=== PATIENT | female | born 1940 | race Caucasian/White ===

== ENCOUNTER 2016-08-31 09:42 | Day surgery (SDC) | payer MEDICARE ==
[2016-08-26 10:32] VITALS: BMI 31.6
--- NOTE | 2016-08-30 17:02 | HP ---
DATE OF ADMISSION: 08/31/2016 Shelby Srivastava is a 76-year-old patient seen with progressive right knee pain. After having treatment options discussed, she elected to proceed with right knee arthroscopy. Consent was obtained. Medical clearance by Dr. Elvis Galvan. PAST MEDICAL HISTORY: Hyperlipidemia, [id number] diabetes, hypertension. PAST SURGICAL HISTORY: Appendectomy, tubal ligation, cholecystectomy, tonsillectomy, rotator cuff surgery. DAILY MEDICATIONS: Aspirin, atorvastatin, metformin. ALLERGIES: DEMEROL AND CODEINE. SOCIAL HISTORY: Patient denies current tobacco use. PHYSICAL EVALUATION OF RIGHT KNEE: Range of motion is 0 to 130 degrees. There is a mild effusion present. Tenderness along the lateral joint line. Positive lateral Kenneth's. Ligaments are stable. Hip rotation is without pain. Distal neurovascular exam is intact. Radiographs of the right knee revealed mild medial compartment and patellofemoral compartment osteoarthritis as well as moderate lateral compartment osteoarthritis. An MRI of the right knee revealed an effusion, osteoarthritis and lateral meniscal tear. IMPRESSION: Internal derangement of right knee a lateral meniscal tear. PLAN: Right knee arthroscopy with partial meniscectomy and debridement.
[~2016-08-31 09:42] MED LIST: DEXAMETHASONE SOD PHOSPHATE 10 MG/ML 1 ML VIAL IV ONE; LACTATED RINGERS 1,000 ML IV SCH; ONDANSETRON 4 MG/2 ML VIAL IVP ONE; ceFAZolin 2 GM in SODIUM CHLORIDE 0.9% 100 ML IVPB ONE
[2016-08-31] MEDS ORDERED: LACTATED RINGERS 1,000 ML IV ONE (09:58)
[2016-08-31] MEDS ORDERED: LIDOCAINE 1% 20 ML VIAL (10MG/ML) FOR IV START INTRADERMA ONE (09:58)
[2016-08-31 10:25] LABS: Glucose,Whole Blood 129 mg/dL (75-99)
[2016-08-31] MEDS ORDERED: LIDOCAINE 1% INJ 10MG/ML (20 ML MDV) ONE (12:30)
[2016-08-31] MEDS ORDERED: PROPOFOL 10 MG/ML 20 ML VIAL IV ONE (12:30)
[2016-08-31] MEDS ORDERED: SUCCINYLCHOLINE CHLORIDE 100 MG/5 ML SYR IV ONE (12:30)
[2016-08-31] MEDS ORDERED: ROCURONIUM BROMIDE 10 MG/ML 10 ML VIAL IV ONE (12:30)
[2016-08-31] MEDS ORDERED: NEOSTIGMINE 1 MG/ML 10 ML VIAL ONE (12:30)
[2016-08-31] MEDS ORDERED: fentaNYL (PF) 50 MCG/ML 2 ML AMP ONE (12:30)
[2016-08-31] MEDS ORDERED: GLYCOPYRROLATE 0.2 MG/ML 2 ML VIAL ONE (12:30)
[2016-08-31] MEDS ORDERED: MIDAZOLAM 2 MG/2 ML VIAL ONE (12:30)
[2016-08-31] MEDS ORDERED: BUPIVACAIN-EPI 0.25%-1:200,000 30 ML VIAL INTRAARTIC ONE ×2 (12:35→13:09)
--- NOTE | 2016-08-31 13:25 | P.OP ---
Date of Procedure: 08/31/16 Preoperative Diagnosis: Internal derangement right knee Postoperative Diagnosis: 1. Tear medial and lateral meniscus right knee 2. 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 Reactive synovitis medial and suprapatellar compartments right knee Procedure(s) Performed: 1. Arthroscopic partial medial and lateral meniscectomy right knee 2. Arthroscopic chondroplasty patella right knee 3. Arthroscopic partial synovectomy medial and suprapatellar compartments right knee Anesthesia: ABNERA Surgeon: John Clayton Estimated Blood Loss (ml): 5 Pathology: none sent Condition: stable Disposition: PACU Indications for Procedure: Patient seen with progressive right knee pain. After having treatment options discussed, she elected to proceed with right knee arthroscopy. Description of Procedure: Patient was taken to the operative suite. Patient underwent a general anesthetic by the department of anesthesia. Patient was given preoperative antibiotics. The right lower extremity was placed in a well-padded arthroscopic leg chamorro. The right leg was prepped and draped in the normal sterile orthopedic fashion. A lateral parapatellar and suprapatellar incision was made. Trochars were inserted. Arthroscopy was initiated. Suprapatellar pouch revealed diffuse thick reactive synovitis. The patellofemoral joint appeared to articulate congruently. There was grade 2/3 chondromalacia with some osteochondral tears present. The scope was guided into the medial gutter. No loose bodies or plica were identified. The scope was then guided into the medial compartment. A medial parapatellar incision was made. Trocar inserted followed by probe. There was a radial tear posterior horn medial meniscus. Grade 1 chondromalacia changes medial femoral condyle - no osteochondral tears. Reactive synovitis anteriorly. A partial medial meniscectomy performed on a stable tissue. Partial synovectomy performed. The residual meniscus probed and found to be stable. Scope and probe were then guided into the intercondylar notch. Cruciates were identified, probed and found to be stable. The scope and probe were then guided into lateral compartment. Complex tear anterior horn lateral meniscus extending into the midbody. Grade 1 chondral malacia changes of the tibial plateau. No loose bodies. No reactive synovitis. A partial lateral meniscectomy performed on a stable tissue. The residual meniscus was found to be stable. The scope was in guided back into the suprapatellar compartment. A motorized shaver was introduced into the suprapatellar compartment. I debrided piecemeal fragments of meniscus. I performed a chondroplasty of the patella. I performed a partial synovectomy. Shaver was removed. I took one more look on the entire knee, no residual debris. Instruments were now removed from the joint. The joint was infiltrated with .25% Marcaine. Steri-Strips were applied to the portal sites. Sterile dressings were applied. The patient was placed into a THERESA hose. No tourniquet was utilized. The patient was awakened, transferred to a bed and taken to recovery stable satisfactory condition.
[2016-08-31 13:32] VITALS: TEMP 97.7
[2016-08-31 13:38] LABS: Glucose,Whole Blood 172 mg/dL (75-99)
[2016-08-31] MEDS: HYDROmorphone 1 MG/ML 1 ML SYRINGE IVP PRN ×4 (13:39→14:05)
[2016-08-31 14:46] VITALS: RESP 18
[2016-08-31 15:56] VITALS: BP 127/69; PULSE 81
== END 2016-08-31 16:05 | disposition home or self-care (01) ==
LOC: OR 09:42
PROVIDERS: ATTEND Orthopaedic Surgery
DX: S83.281A Other tear of lateral meniscus, current injury, right knee, initial encounter (principal); S83.241A Other tear of medial meniscus, current injury, right knee, initial encounter; M22.41 Chondromalacia patellae, right knee; M65.9 Synovitis and tenosynovitis, unspecified; X58.XXXA Exposure to other specified factors, initial encounter; E78.5 Hyperlipidemia, unspecified; E11.9 Type 2 diabetes mellitus without complications; M17.11 Unilateral primary osteoarthritis, right knee; K58.9 Irritable bowel syndrome, unspecified; I10 Essential (primary) hypertension; Z79.84 Long term (current) use of oral hypoglycemic drugs; Z79.82 Long term (current) use of aspirin; Z79.899 Other long term (current) drug therapy; Z88.5 Allergy status to narcotic agent; Z87.891 Personal history of nicotine dependence
CPT/HCPCS: 29883; J2250; J1100; J2710; J0690; J2405; J2001; J3010; J1170; J0330; J2704

== ENCOUNTER → 2016-11-08 | Outpatient (CLI) | payer MEDICARE ==
--- NOTE | 2016-11-09 13:10 | MM ---
Reason for exam: screening (asymptomatic). Last mammogram was performed 1 year and 3 months ago. History: Patient is postmenopausal. Benign stereotactic core biopsy of the right breast, October 23, 1998. Physical Findings: A clinical breast exam by your physician is recommended on an annual basis and results should be correlated with mammographic findings. MG 3D Screening Mammo W/Cad Bilateral CC and MLO view(s) were taken. Prior study comparison: August 06, 2015, bilateral MG screening mammo w CAD. August 01, 2014, bilateral MG screening mammo w CAD. Previous mammotome biopsy in the right breast. No significant changes when compared with prior studies. ASSESSMENT: Benign, BI-RAD 2 RECOMMENDATION: Routine screening mammogram of both breasts in 1 year.
== END | disposition home or self-care (01) ==
LOC: RADMAMWWP 09:05
PROVIDERS: ATTEND Family Medicine
DX: Z12.31 Encounter for screening mammogram for malignant neoplasm of breast (principal)
CPT/HCPCS: 77063; G0202

== ENCOUNTER → 2018-02-12 | Outpatient (CLI) | payer MEDICARE ==
[2018-02-12 14:39] LABS: Blood Urea Nitrogen 11 mg/dL (7-17)
--- NOTE | 2018-02-12 16:54 | MR ---
EXAMINATION TYPE: MR iac wo/w con DATE OF EXAM: 02/12/2018 COMPARISON: Prior MRI internal auditory canals 01/20/2016 HISTORY: Acoustic nerve disorder TECHNIQUE: Multiplanar, multisequence images of the brain and brainstem is performed without and with IV contras t, utilizing 7.5 mL intravenous Gadavist . FINDINGS: Diffusion weighted images demonstrate no evidence of a recent infarct or other diffusion ab normality, suspected artifact is noted. There is no extra-axial fluid collection or significant inte rval change in white matter signal abnormality. Scattered hyperintensities on inversion recovery and T2-weighted sequences are again noted and are similar in size and distribution to previous exam with in the periventricular white matter. The ventricular system and cisternal spaces are normal in size a nd appearance. The brain volume is age appropriate. Postop changes, abnormal increased signal in the mastoid air cells on T2 and inversion recovery seque nces is again noted. Midline structures demonstrate normal morphology. The craniocervical junction appears within normal limits. Post contrast images demonstrate no abnormal enhancement to suggest recurrent tumor. The dur al venous sinuses appear patent. The visualized sinuses are remarkable for inflammatory change in the bilateral maxillary sinuses and the globes are intact. IMPRESSION: Stable postop changes. Sinus disease.
== END | disposition home or self-care (01) ==
LOC: RADMRIMAIN 14:08
PROVIDERS: ATTEND Otolaryngology
DX: H93.3X1 Disorders of right acoustic nerve (principal); Z98.890 Other specified postprocedural states
CPT/HCPCS: 82565; 84520; 70553; 36415; A9581

== ENCOUNTER → 2018-05-01 | Outpatient (CLI) | payer MEDICARE ==
[2018-05-01 09:56] LABS: HCT 41.3 % (34.0-46.0); HGB 13.4 gm/dL (11.4-16.0); MCH 29.3 pg (25.0-35.0); MCHC 32.6 g/dL (31.0-37.0); MCV 89.9 fL (80.0-100.0); Mean Platelet Volume 7.3; Platelet Count 211 k/uL (150-450); RBC 4.59 m/uL (3.80-5.40); RDW 13.7 % (11.5-15.5); WBC 5.3 k/uL (3.8-10.6)
[2018-05-01 10:12] LABS: ALT 18 U/L (9-52); AST 24 U/L (14-36); Albumin 3.7 g/dL (3.5-5.0); Alkaline Phosphatase 51 U/L (38-126); Anion Gap 7 mmol/L; Blood Urea Nitrogen 9 mg/dL (7-17); Calcium 9.2 mg/dL (8.4-10.2); Carbon Dioxide 28 mmol/L (22-30); Chloride 107 mmol/L (98-107); Cholesterol 168 mg/dL (<200); Glucose 125 mg/dL (74-99); HDL Cholesterol 79 mg/dL (40-60); LDL Cholesterol,Calculated 66 mg/dL (0-99); Potassium 4.3 mmol/L (3.5-5.1); Sodium 142 mmol/L (137-145); Total Bilirubin 0.6 mg/dL (0.2-1.3); Total Protein 6.3 g/dL (6.3-8.2); Triglycerides 114 mg/dL (<150)
[2018-05-01 19:11] LABS: Hemoglobin A1C 6.4 % (4.0-6.0)
== END | disposition home or self-care (01) ==
LOC: LABWHC1 08:46
PROVIDERS: ATTEND Family Medicine
DX: E11.9 Type 2 diabetes mellitus without complications (principal); E78.5 Hyperlipidemia, unspecified
CPT/HCPCS: 36415; 80053; 80061; 83036; 85027

== ENCOUNTER → 2018-12-07 | Outpatient (CLI) | payer MEDICARE | LOC: LABWHC1 10:31 | PROVIDERS: ATTEND Internal Medicine Interventional Cardiology | DX: E03.9 Hypothyroidism, unspecified (principal) | CPT/HCPCS: 36415; 84439; 84443 ==

== ENCOUNTER 2019-09-18 19:15 | Emergency (ER) | payer MEDICARE ==
[2019-09-18 19:22] VITALS: RESP 16
[2019-09-18] MEDS ORDERED: SODIUM CHLORIDE 0.9% 500 ML 500 ML IV STA (19:43)
[2019-09-18] MEDS ORDERED: ACETAMINOPHEN TAB 325 MG TAB PO STA (19:44)
--- NOTE | 2019-09-18 19:50 | ED ---
Dizziness HPI - General Chief Complaint: Dizziness Stated Complaint: A-Fib Time Seen by Provider: 09/18/19 19:30 Source: patient Mode of arrival: wheelchair Limitations: no limitations - History of Present Illness Initial Comments: Patient is a 79-year-old female, past medical history of A. fib on Coumadin, diabetes, presenting to emergency Department with complaints of feeling lightheaded since this morning. Patient states she is also having some mild back pain and feels like she is "shaky." Patient denies fever, nausea, vomiting, abdominal pain, chest pain. Patient states she does feel short of breath sometimes but that is her normal. Patient states she also has a mild cough but typically does. She was recently started on metoprolol approximately 3 weeks ago. No other changes in her medications. She has no other complaints at this time. Upon arrival to the ER her vital signs are stable. - Related Data Home Medications Medication Instructions Recorded Confirmed Aspirin 325 mg PO DAILY 08/26/16 08/26/16 Atorvastatin [Lipitor] 10 mg PO HS 08/26/16 08/31/16 Calcium Carbonate/Vitamin D3 1 each PO DAILY 08/26/16 08/31/16 [Calcium 500-Vit D3 600 Tablet] Fish Oil/Dha/Epa [Fish Oil 1,200 1 each PO TID 08/26/16 08/26/16 mg Fish Oil] Folic Acid 1 mg PO DAILY 08/26/16 08/31/16 Multivitamins, Thera [Multivitamin] 1 tab PO DAILY 08/26/16 08/26/16 metFORMIN HCL [Glucophage] 500 mg PO BID 08/26/16 08/31/16 Previous Rx's Medication Instructions Recorded Hydrocodone/Acetaminophen [[place] 1 each PO Q6HR PRN #20 tab 08/31/16 5-325] Allergies Allergy/AdvReac Type Severity Reaction Status Date / Time codeine Allergy Unknown Verified 08/26/16 10:13 meperidine [From Demerol] Allergy Unknown Verified 08/26/16 10:13 Review of Systems ROS Statement: Those systems with pertinent positive or pertinent negative responses have been documented in the HPI. ROS Other: All systems not noted in ROS Statement are negative. Past Medical History Past Medical History: Chest Pain / Angina, Diabetes Mellitus, Hyperlipidemia, Osteoarthritis (OA) Additional Past Medical History / Comment(s): IBS History of Any Multi-Drug Resistant Organisms: None Reported Past Surgical History: Appendectomy, Cholecystectomy, Heart Catheterization, O rthopedic Surgery, Tonsillectomy, Tubal Ligation Additional Past Surgical History / Comment(s): Bilateral cataracts, Lt ankle- screws, Lt rotator cuff repair, Collapsed lung, Acoustic neuroma, Heart cath x2 Past Anesthesia/Blood Transfusion Reactions: No Reported Reaction Past Psychological History: Depression Smoking Status: Former smoker Past Alcohol Use History: Occasional Past Drug Use History: None Reported - Past Family History Mother Family Medical History: No Reported History General Exam - General Exam Comments Initial Comments: GENERAL: Well-appearing, well-nourished and in no acute distress. HEAD: Atraumatic, normocephalic. EYES: Pupils equal round and reactive to light, extraocular movements intact, sclera anicteric, conjunctiva are normal. ENT: TMs normal, nares patent, oropharynx clear without exudates. Moist mucous membranes. NECK: Normal range of motion, supple without lymphadenopathy or JVD. LUNGS: Breath sounds clear to auscultation bilaterally and equal. No wheezes rales or rhonchi. HEART: Regular rate and rhythm without murmurs, rubs or gallops. ABDOMEN: Soft, nontender, normoactive bowel sounds. No guarding, no rebound. No masses appreciated. : Deferred EXTREMITIES: Normal range of motion, no pitting or edema. No clubbing or cyanosis. Strength 5 out of 5 in upper and lower extremities. Mild pain with palpation of the left thoracic paraspinals. NEUROLOGICAL: Cranial nerves II through XII grossly intact. Normal speech, normal gait. PSYCH: Normal mood, normal affect. SKIN: Warm, Dry, normal turgor, no rashes or lesions noted. Limitations: no limitations Course Vital Signs 09/18/19 09/18/19 19:17 23:40 Temperature 97.6 F 97.7 F Pulse Rate 96 89 Respiratory 16 16 Rate Blood Pressure 127/81 123/76 O2 Sat by Pulse 98 98 Oximetry EKG Findings - EKG Comments: EKG Findings:: Ventricular rate 97, NV 144, QTC 482. Normal sinus rhythm. Pos sible left atrial enlargement, low voltage QRS. Medical Decision Making - Medical Decision Making Patient is a 79-year-old female presenting with lightheadedness that started this morning. Vitals are stable. Exam is unremarkable. Lab work and urinalysis showed no acute findings. No signs of infection. EKG shows no acute abnormalities, troponin is normal. I discussed these findings with the patient. Patient was given fluids. She states she is asymptomatic at this time and wishes to go home. Patient is stable for discharge at this time. Her vitals remained stable. Return parameters were discussed with the patient she verbalized understanding. Case discussed with Dr. Piña. - Lab Data Result diagrams: 09/18/19 19:35 09/18/19 19:35 Lab Results 09/18/19 09/18/19 09/18/19 Range/Units 19:35 19:35 19:35 WBC 6.2 (3.8-10.6) k/uL RBC 5.21 (3.80-5.40) m/uL Hgb 16.0 (11.4-16.0) gm/dL Hct 47.1 H (34.0-46.0) % MCV 90.4 (80.0-100.0) fL MCH 30.7 (25.0-35.0) pg MCHC 34.0 (31.0-37.0) g/dL RDW 13.2 (11.5-15.5) % Plt Count 202 (150-450) k/uL Neutrophils % 52 % Lymphocytes % 30 % Monocytes % 6 % Eosinophils % 8 % Basophils % 1 % Neutrophils # 3.2 (1.3-7.7) k/uL Lymphocytes # 1.8 (1.0-4.8) k/uL Monocytes # 0.4 (0-1.0) k/uL Eosinophils # 0.5 (0-0.7) k/uL Basophils # 0.1 (0-0.2) k/uL PT 19.2 H (9.0-12.0) sec INR 2.0 H (<1.2) Sodium 137 (137-145) mmol/L Potassium 3.7 (3.5-5.1) mmol/L Chloride 104 (98-107) mmol/L Carbon Dioxide 24 (22-30) mmol/L Anion Gap 9 mmol/L BUN 17 (7-17) mg/dL Creatinine 0.74 (0.52-1.04) mg/dL Est GFR (CKD-EPI)AfAm >90 (>60 ml/min/1.73 sqM) Est GFR (CKD-EPI)NonAf 79 (>60 ml/min/1.73 sqM) Glucose 194 H (74-99) mg/dL Calcium 9.3 (8.4-10.2) mg/dL Total Bilirubin 0.4 (0.2-1.3) mg/dL AST 28 (14-36) U/L ALT 15 (4-34) U/L Alkaline Phosphatase 66 (38-126) U/L Troponin I (0.000-0.034) ng/mL Total Protein 6.6 (6.3-8.2) g/dL Albumin 4.1 (3.5-5.0) g/dL Urine Color Urine Appearance (Clear) Urine pH (5.0-8.0) Ur Specific [place] (1.001-1.035) Urine Protein (Negative) Urine Glucose (UA) (Negative) Urine Ketones (Negative) Urine Blood (Negative) Urine Nitrite (Negative) Urine Bilirubin (Negative) Urine Urobilinogen (<2.0) mg/dL Ur Leukocyte Esterase (Negative) Urine RBC (0-5) /hpf Urine WBC (0-5) /hpf Ur Squamous Epith Cells (0-4) /hpf Hyaline Casts (0-2) /lpf Urine Mucus (None) /hpf 09/18/19 09/18/19 Range/Units 19:35 22:45 WBC (3.8-10.6) k/uL RBC (3.80-5.40) m/uL Hgb (11.4-16.0) gm/dL Hct (34.0-46.0) % MCV (80.0-100.0) fL MCH (25.0-35.0) pg MCHC (31.0-37.0) g/dL RDW (11.5-15.5) % Plt Count (150-450) k/uL Neutrophils % % Lymphocytes % % Monocytes % % Eosinophils % % Basophils % % Neutrophils # (1.3-7.7) k/uL Lymphocytes # (1.0-4.8) k/uL Monocytes # (0-1.0) k/uL Eosinophils # (0-0.7) k/uL Basophils # (0-0.2) k/uL PT (9.0-12.0) sec INR (<1.2) Sodium (137-145) mmol/L Potassium (3.5-5.1) mmol/L Chloride (98-107) mmol/L Carbon Dioxide (22-30) mmol/L Anion Gap mmol/L BUN (7-17) mg/dL Creatinine (0.52-1.04) mg/dL Est GFR (CKD-EPI)AfAm (>60 ml/min/1.73 sqM) Est GFR (CKD-EPI)NonAf (>60 ml/min/1.73 sqM) Glucose (74-99) mg/dL Calcium (8.4-10.2) mg/dL Total Bilirubin (0.2-1.3) mg/dL AST (14-36) U/L ALT (4-34) U/L Alkaline Phosphatase (38-126) U/L Troponin I <0.012 (0.000-0.034) ng/mL Total Protein (6.3-8.2) g/dL Albumin (3.5-5.0) g/dL Urine Color Yellow Urine Appearance Cloudy H (Clear) Urine pH 5.0 (5.0-8.0) Ur Specific [place] 1.030 (1.001-1.035) Urine Protein Trace H (Negative) Urine Glucose (UA) Negative (Negative) Urine Ketones Trace H (Negative) Urine Blood Trace H (Negative) Urine Nitrite Negative (Negative) Urine Bilirubin Negative (Negative) Urine Urobilinogen 2.0 (<2.0) mg/dL Ur Leukocyte Esterase Small H (Negative) Urine RBC 9 H (0-5) /hpf Urine WBC 2 (0-5) /hpf Ur Squamous Epith Cells 1 (0-4) /hpf Hyaline Casts 4 H (0-2) /lpf Urine Mucus Occasional H (None) /hpf Disposition Clinical Impression: Light headedness Disposition: HOME SELF-CARE Condition: Stable Instructions (If sedation given, give patient instructions): Lightheadedness (ED) Additional Instructions: Please return to the Emergency Department if symptoms worsen or any other concerns. Follow-up with regular physician in 1-3 days. Drink lots of fluids. Is patient prescribed a controlled substance at d/c from ED?: No Referrals: Elvis Galvan DO [Primary Care Provider] - 1-2 days
[2019-09-18 20:01] LABS: Prothrombin Time 19.2 sec (9.0-12.0)
--- NOTE | 2019-09-18 20:05 | XR ---
EXAMINATION TYPE: XR chest 2V DATE OF EXAM: 09/18/2019 COMPARISON: 09/14/2011 INDICATION: Cough dyspnea TECHNIQUE: Frontal and lateral views of the chest are obtained. FINDINGS: The heart size is normal. The pulmonary vasculature is normal. The lungs are clear. IMPRESSION: 1. No acute pulmonary process.
[2019-09-18 20:06] LABS: ALT 15 U/L (4-34); AST 28 U/L (14-36); African American GFR (CKD) >90 (>60 ml/min/1.73 sqM); Albumin 4.1 g/dL (3.5-5.0); Alkaline Phosphatase 66 U/L (38-126); Anion Gap 9 mmol/L; Blood Urea Nitrogen 17 mg/dL (7-17); Calcium 9.3 mg/dL (8.4-10.2); Carbon Dioxide 24 mmol/L (22-30); Chloride 104 mmol/L (98-107); Glucose 194 mg/dL (74-99); Non-African American GFR(CKD) 79 (>60 ml/min/1.73 sqM); Potassium 3.7 mmol/L (3.5-5.1); Sodium 137 mmol/L (137-145); Total Bilirubin 0.4 mg/dL (0.2-1.3); Total Protein 6.6 g/dL (6.3-8.2)
[2019-09-18 20:30] LABS: Basophils # (A) 0.1 k/uL (0-0.2); Basophils % (A) 1 %; Eosinophils # (A) 0.5 k/uL (0-0.7); Eosinophils % (A) 8 %; HCT 47.1 % (34.0-46.0); Lymphocytes # (A) 1.8 k/uL (1.0-4.8); Lymphocytes % (A) 30 %; MCH 30.7 pg (25.0-35.0); MCV 90.4 fL (80.0-100.0); Monocytes # (A) 0.4 k/uL (0-1.0); Monocytes % (A) 6 %; Neutrophils # (A) 3.2 k/uL (1.3-7.7); Neutrophils % (A) 52 %; Platelet Count 202 k/uL (150-450); RBC 5.21 m/uL (3.80-5.40); RDW 13.2 % (11.5-15.5); WBC 6.2 k/uL (3.8-10.6)
[2019-09-18 22:58] LABS: Appearance,Urine Cloudy (Clear); Bilirubin,Urine Negative (Negative); Blood,Urine Trace (Negative); Color,Urine Yellow; Glucose,Urine (UA) Negative (Negative); Hyaline Casts,Urine 4 /lpf (0-2); Ketones,Urine Trace (Negative); Leukocyte Esterase,Urine Small (Negative); Mucus,Urine Occasional /hpf; Nitrite,Urine Negative (Negative); Protein,Urine Trace (Negative); RBC,Urine 9 /hpf (0-5); Squamous Epithelial Cell,Urine 1 /hpf (0-4); WBC,Urine 2 /hpf (0-5)
[2019-09-18 23:42] VITALS: BP 123/76; PULSE 89; TEMP 97.7
== END 2019-09-18 23:46 | disposition home or self-care (01) ==
LOC: EC 19:15
DX: R42 Dizziness and giddiness (principal); I25.2 Old myocardial infarction; E11.9 Type 2 diabetes mellitus without complications; E78.5 Hyperlipidemia, unspecified; M19.90 Unspecified osteoarthritis, unspecified site; Z79.82 Long term (current) use of aspirin; Z79.84 Long term (current) use of oral hypoglycemic drugs; Z79.899 Other long term (current) drug therapy; Z87.891 Personal history of nicotine dependence; Z95.5 Presence of coronary angioplasty implant and graft; Z90.49 Acquired absence of other specified parts of digestive tract; Z98.890 Other specified postprocedural states; Z88.5 Allergy status to narcotic agent
CPT/HCPCS: 36415; 71046; 80053; 81001; 84484; 85025; 85610; 93005; 96360; 99284

== ENCOUNTER → 2020-01-20 | Outpatient (CLI) | payer MEDICARE ==
[2020-01-20 10:40] LABS: HCT 43.5 % (34.0-46.0); HGB 14.2 gm/dL (11.4-16.0); MCHC 32.6 g/dL (31.0-37.0); Mean Platelet Volume 7.6; Platelet Count 254 k/uL (150-450); RBC 4.73 m/uL (3.80-5.40); RDW 13.5 % (11.5-15.5)
[2020-01-20 17:32] LABS: African American GFR (CKD) 82.4 (60.0-200.0); Anion Gap 8.7 mmol/L (4.00-12.00); Calcium 9.3 mg/dL (8.7-10.3); Carbon Dioxide 26.3 mmol/L (21.6-31.8); Magnesium 1.8 mg/dL (1.5-2.4); Non-African American GFR(CKD) 71.1 (60.0-200.0); Potassium 4.6 mmol/L (3.5-5.5)
[2020-01-20 17:40] LABS: T4, Free (Free Thyroxine) 1.2 ng/dL (0.80-1.80)
== END | disposition home or self-care (01) ==
LOC: LABWHC1 08:58
PROVIDERS: ATTEND Nurse Practitioner
DX: I48.91 Unspecified atrial fibrillation (principal); I49.5 Sick sinus syndrome
CPT/HCPCS: 36415; 80048; 83735; 84439; 84443; 85027

== ENCOUNTER 2020-02-03 08:56 | Day surgery (SDC) | payer MEDICARE ==
[2020-01-30 14:40] VITALS: BMI 32.1
[2020-02-03 09:36] LABS: Glucose,Whole Blood 129 mg/dL (75-99)
[2020-02-03] MEDS ORDERED: ceFAZolin 1,000 MG in SODIUM CHLORIDE 0.9% IRRIGATIO 250 ML IRRIGATION ONE (09:38)
[2020-02-03] MEDS: SODIUM CHLORIDE 0.9% 1,000 ML IV SCH ×2 (09:38)
[2020-02-03] MEDS ORDERED: SODIUM CHLORIDE 0.9% 500 ML 500 ML IV ONE (09:41)
[2020-02-03 10:03] LABS: INR 1.1 (<1.2); Prothrombin Time 11.3 sec (9.0-12.0)
[2020-02-03] MEDS ORDERED: IOPAMIDOL-250 50ML BTL IV ONE (11:00)
[2020-02-03] MEDS: LIDOCAINE 1% INJ 10MG/ML (20 ML MDV) SQ ONE ×3 (11:17→12:03)
[2020-02-03] MEDS ORDERED: MIDAZOLAM 2 MG/2 ML VIAL IV ONE (11:17)
[2020-02-03] MEDS ORDERED: NOREPINEPHRINE 4 MG in SODIUM CHLORIDE 0.9% 250 ML IV ONE (11:48)
[2020-02-03] MEDS ORDERED: fentaNYL (PF) 50 MCG/ML 2 ML AMP IV ONE (12:19)
[2020-02-03] MEDS ORDERED: LIDOCAINE 1% INJ 10MG/ML (20 ML MDV) SQ ONE (12:19)
[2020-02-03] MEDS ORDERED: ACETAMINOPHEN TAB 325 MG TAB PO PRN (13:15)
[2020-02-03] MEDS ORDERED: MECLIZINE 25 MG TAB PO PRN (13:18)
[2020-02-03] MEDS: METOPROLOL TARTRATE 50 MG TAB PO SCH ×2 (13:21→23:03)
[2020-02-03] MEDS ORDERED: WARFARIN 5 MG TAB PO SCH ×2 (13:30→20:28)
[2020-02-03] MEDS ORDERED: HYDROmorphone 0.5 MG/0.5 ML SYRINGE IVP STA (13:34)
[2020-02-03] MEDS ORDERED: HYDROmorphone 1 MG/ML 1 ML SYRINGE ONE ×2 (13:44→17:53)
[2020-02-03] MEDS ORDERED: SODIUM CHLORIDE 0.9% 1,000 ML IV SCH (13:45)
--- NOTE | 2020-02-03 14:37 | XR ---
EXAMINATION TYPE: XR chest 2V DATE OF EXAM: 02/03/2020 COMPARISON: Prior chest 09/18/2019 HISTORY: Lead placement check TECHNIQUE: Frontal and lateral views of the chest are obtained. FINDINGS: Generators in the left pectoral region, there are leads in the right atrium and ventricle. There is no focal air space opacity, pleural effusion, or pneumothorax seen. The cardiac silhouette size is within normal limits. The osseous structures are intact. Bilateral apical pleural thickenin g is again noted. There is some subcutaneous emphysema. IMPRESSION: No evident complication status post lead placement.
--- NOTE | 2020-02-03 15:02 | PCN ---
PROCEDURE NOTE DATE OF SERVICE: 02/03/2020. PROCEDURE PERFORMED: Dual-chamber permanent pacemaker from left infraclavicular approach. PERFORMED BY: Dr. Maverick Enriquez. SEDATION: Moderate conscious sedation time was 95 minutes. Patient was administered Versed, fentanyl. Oxygen saturation, hemodynamics and EKG were monitored closely. CLINICAL INFORMATION: Mrs. Shelby Srivastava is a 79-year-old lady with history of type 2 diabetes, hypertension, hyperlipidemia, who also has developed paroxysmal atrial fib with underlying sick sinus syndrome. Whenever she converted spontaneously to sinus rhythm, she has long pauses of more than 5 seconds with syncope. Because of underlying significant conduction system/sick sinus disease, she was advised dual-chamber pacemaker after doing an event monitor, which recorded several pauses. Risks, benefits, options, rationale were explained to the patient. She was brought in for the procedure electively. PROCEDURE NOTE: Under local anesthesia and strict aseptic precautions using a micropuncture needle technique, an access was obtained into the left axillary vein. The access point was about 2 inches medial and parallel to the left deltopectoral groove. I had difficulty gaining the access and I had punctured the artery with a micropuncture needle at least on 2 occasions. I requested the assistance of Dr. Espinal who obtained the 2nd access point in the same line of the 1st one inferiorly. Subsequently, under strict aseptic precautions and local anesthesia, a linear incision of 3.5 inches was made medial and parallel to the left deltopectoral groove. Blunt dissection was carried. Hemostasis was secured. The surgical pocket was made. An antibiotic sponge was kept in the surgical pocket for 30 minutes. Under fluoroscopic guidance, the ventricular lead was positioned and placed in the interventricular septum with good capture and thresholds. I also checked the lead position in [place] and MARRERO projection and also did a 10 V pacing. Subsequently, another 6-Hebrew introducer was placed to the 2nd access point. The atrial lead was then positioned in the right atrial appendage. Good P-waves and impedance was obtained. Obviously, because the patient was in atrial fibrillation, I could not pace or check thresholds. The wound was then irrigated with antibiotics. Both leads were secured to the underlying muscle with a 0-silk sutures. Both the leads were connected to the pulse generator. Pulse generator was also sutured to the underlying muscle in the line of the incision. The wound was then closed in 2 layers with a 3.0 and 4-0 Vicryl. Excellent hemostasis was secured and good apposition was achieved. I again looked at both the leads and prior to closing, 10 V pacing was performed for both the leads. There were no issues. Lead position was again rechecked and slack was kept in the leads. Subsequently, the wound was closed. While obtaining the access, the patient developed somewhat vasovagal episode with hypotension requiring some IV fluids and transient use of Levophed. At the end of the procedure, patient's pressure was 140/80, oxygen saturation was 97%. She was asymptomatic. Pacemaker information: Infectious Disease Technician of the device is a [employer], model Assurity MRI 2272 pacemaker, serial #[id number]. Atrial lead machine milker was [employer], model tendril ST S2 088 EC/46, serial number [id number]. Ventricular lead machine milker [employer], model tendril STS 2088 TC/52, serial number [id number]. The ventricular lead was positioned in the interventricular septum. The atrial lead thresholds were not obtained. The P-wave sensitivities were more than 5.0. Impedance was 1050 ohms. Ventricular threshold was 0.5 V at 0.4 milliseconds. R- waves of more than 12.0. The lead impedance was 580 ohms. Pacemaker was set at a low rate of 50, high rate of 110 in a DDD mode. Paced AV delay was 275 milliseconds. Sensed AV delay was 250 milliseconds. The patient tolerated procedure well. She will have a portable chest x-ray today and two-view chest x-ray tomorrow and a device check prior to discharge. Details and results were discussed with the patient and her family members. MMTERESAL / JANINEN: [id number] /
[2020-02-03 15:33] LABS: HCT 43.2 % (34.0-46.0); HGB 14.2 gm/dL (11.4-16.0); MCH 30.5 pg (25.0-35.0); MCHC 32.8 g/dL (31.0-37.0); MCV 92.8 fL (80.0-100.0); Platelet Count 194 k/uL (150-450); RBC 4.65 m/uL (3.80-5.40); RDW 13.4 % (11.5-15.5); WBC 8.3 k/uL (3.8-10.6)
[2020-02-03] MEDS: HYDROmorphone 0.5 MG/0.5 ML SYRINGE IVP PRN ×2 (17:55→20:58)
[2020-02-03 20:18] LABS: Glucose,Whole Blood 124 mg/dL (75-99)
[2020-02-03] MEDS: FOLIC ACID 1 MG TAB PO SCH (20:57)
[2020-02-03] MEDS: INSULIN ASPART (NovoLOG) 100 UNIT/ML VIAL SQ SCH (20:58)
[2020-02-03] MEDS ORDERED: ATORVASTATIN 10 MG TAB PO SCH (21:00)
[2020-02-04] MEDS: SODIUM CHLORIDE 0.9% 1,000 ML IV SCH ×2 (05:50→05:51)
[2020-02-04] MEDS: HYDROmorphone 0.5 MG/0.5 ML SYRINGE IVP PRN (05:53)
[2020-02-04 06:17] LABS: Glucose,Whole Blood 133 mg/dL (75-99)
[2020-02-04 07:36] LABS: Basophils # (A) 0.1 k/uL (0-0.2); Basophils % (A) 1 %; Eosinophils # (A) 0.5 k/uL (0-0.7); Eosinophils % (A) 6 %; HCT 41.4 % (34.0-46.0); HGB 13.1 gm/dL (11.4-16.0); INR 1.2 (<1.2); Lymphocytes # (A) 1.9 k/uL (1.0-4.8); Lymphocytes % (A) 25 %; MCH 29.4 pg (25.0-35.0); MCHC 31.6 g/dL (31.0-37.0); Mean Platelet Volume 7.6; Monocytes # (A) 0.5 k/uL (0-1.0); Monocytes % (A) 6 %; Neutrophils # (A) 4.5 k/uL (1.3-7.7); Neutrophils % (A) 60 %; Platelet Count 181 k/uL (150-450); RBC 4.45 m/uL (3.80-5.40); RDW 13.5 % (11.5-15.5); WBC 7.5 k/uL (3.8-10.6)
[2020-02-04] MEDS: INSULIN ASPART (NovoLOG) 100 UNIT/ML VIAL SQ SCH ×2 (08:33→11:52)
[2020-02-04] MEDS: METOPROLOL TARTRATE 50 MG TAB PO SCH (08:35)
[2020-02-04] MEDS: FOLIC ACID 1 MG TAB PO SCH (08:35)
--- NOTE | 2020-02-04 08:42 | XR ---
EXAMINATION TYPE: XR chest 2V DATE OF EXAM: 02/04/2020 COMPARISON: 02/03/2020 HISTORY: 79-year-old female lead placement check TECHNIQUE: AP and lateral views FINDINGS: Left anterior chest wall pacemaker generator with right atrial and right ventricular leads. Heart upp er limits of normal size. Mild interstitial prominence. Some strandy atelectasis in the lower lungs. No consolidation, pneumothorax, or pleural effusion seen. IMPRESSION: Borderline heart size. Left-sided pacemaker generator with right atrial and right ventricular leads. Some minimal strandy basilar atelectasis. No acute process seen.
[2020-02-04] MEDS ORDERED: NON FORMULARY DRUG (Fish Oil/Dha/Epa [Fish Oil 1,200 Mg Fish Oil] 1 EACH) PO SCH (09:00)
[2020-02-04] MEDS ORDERED: CYANOCOBALAMIN 500 MCG TAB PO SCH (09:00)
[2020-02-04 09:31] VITALS: RESP 12
[2020-02-04 11:51] LABS: Glucose,Whole Blood 107 mg/dL (75-99)
[2020-02-04] MEDS ORDERED: CALCIUM CARB-VIT D 500MG-200UN 1 EACH TAB PO SCH (12:00)
[2020-02-04] MEDS ORDERED: MULTIVITAMINS, THERA 1 EACH TAB PO SCH (12:00)
[2020-02-04 12:54] VITALS: BP 110/74; PULSE 72; TEMP 98.8
[2020-02-04] MEDS ORDERED: METOPROLOL TARTRATE 25 MG TAB PO SCH (16:00)
[2020-02-05] MEDS ORDERED: metFORMIN 500 MG TAB PO SCH (12:00)
--- NOTE | 2020-02-05 18:11 | DS ---
DISCHARGE SUMMARY This is a delayed dictation. DATE OF ADMISSION: 02/03/2020 DATE OF DISCHARGE: 02/04/2020. DIAGNOSES: 1. Syncope with sick sinus syndrome. 2. Hypertension. 3. Hyperlipidemia. PROCEDURES PERFORMED: Permanent dual-chamber pacemaker from left infraclavicular approach. Mrs. Srivatsava was brought in electively for a dual-chamber pacemaker in view of significant episodes of syncope and pauses of more than 5.0 seconds with symptoms. The procedure was performed on 02/03/2020 uneventfully. Post-procedure course was uneventful. She was re-evaluated by me on 02/04/2020. Her vitals were stable. Blood pressure was 104/70, pulse rate was 62 per minute sinus. She had converted to sinus rhythm the night before. No JVD. S1, S2 heard normally. Short systolic murmur noted. Lungs were clear. Abdomen and lower extremity exam was unchanged. The left infraclavicular pacemaker site was clean and dry. The device was interrogated. The thresholds and sensitivities were excellent. Chest x-ray revealed no complications. The patient was discharged with instructions that she should see me in a week. All discharge instructions regarding activity, diet and importance of wearing the sleeve for a week were discussed. The patient will be seen in the office within 7-8 days. MMODL / IJN: [id number] /
== END 2020-02-04 13:13 | disposition home or self-care (01) ==
LOC: CATHEP 08:56 → 1SOBS 18:07 → CATHEP 02-04 13:13
PROVIDERS: ATTEND Internal Medicine Interventional Cardiology
DX: I49.5 Sick sinus syndrome (principal); I48.0 Paroxysmal atrial fibrillation; I10 Essential (primary) hypertension; E11.9 Type 2 diabetes mellitus without complications; E78.5 Hyperlipidemia, unspecified; E78.00 Pure hypercholesterolemia, unspecified; Z79.84 Long term (current) use of oral hypoglycemic drugs; Z79.01 Long term (current) use of anticoagulants; Z79.899 Other long term (current) drug therapy; Z88.5 Allergy status to narcotic agent; Z82.49 Family history of ischemic heart disease and other diseases of the circulatory system
CPT/HCPCS: 33208; 85025; 85027; 85610 ×2; 71046 ×2; C1769; C1898; C1785; J2250; J0690 ×3; J2001; J3010; J1170 ×2; Q9966

== ENCOUNTER → 2020-03-13 | Outpatient (CLI) | payer MEDICARE ==
[2020-03-13 13:17] LABS: African American GFR (CKD) >90 (>60 ml/min/1.73 sqM); Blood Urea Nitrogen 17 mg/dL (7-17); Non-African American GFR(CKD) 80 (>60 ml/min/1.73 sqM)
--- NOTE | 2020-03-13 14:02 | CT ---
EXAMINATION TYPE: CT iac w con DATE OF EXAM: 03/13/2020 COMPARISON: MRI IAC January 20, 2016. HISTORY: Hx of acoustic neuroma CT DLP: 150 mGycm Automated exposure control for dose reduction was used. CONTRAST: CT scan of the IACs is performed with IV Contrast, patient injected with 100 mL of Isovue 300. FINDINGS: The external auditory canals are patent bilaterally. There is interval right mastoid surger y with packing material and bony resection. Residual air cells inferiorly and deep aspect show comple te opacification. Left mastoid air cells show no new suspicious opacification. The middle ear ossicles are both within normal limits on the left. There is no evidence of suspiciou s surrounding soft tissue density to suggest cholesteatoma. Right-sided middle ear ossicles are abnor mal with suspected surgery or deformity, correlate clinically, there is abnormal soft tissue along th e deeper aspect for reference axial image 40 and coronal image 97. Recurrent middle ear infection can not be excluded. The scutum is preserved on the left. The cochlea are symmetric and unremarkable. There is suspected interval resection of majority of the right semicircular canals with only minimal portion seen near axial image 45, coronal images show res ection up to level of petrous apex on image 100. Vestibular aqueduct and internal carotid canal appear unremarkable. Temporomandibular joints are thien ntained bilaterally. Incidental mild to moderate mucosal thickening involving the inferior right maxillary sinus. No suspi cious enhancement is seen. IMPRESSION: Interval right-sided mastoid surgery. Persistent or recurrent right-sided mastoiditis. A bnormal soft tissue deep aspect right middle ear ossicles, recurrent infection cannot be excluded. Delaney spect interval surgical resection of majority of the semicircular canals and petrous apex, correlate clinically.
== END | disposition home or self-care (01) ==
LOC: RADCTMAIN 12:31
PROVIDERS: ATTEND Otolaryngology
DX: M79.89 Other specified soft tissue disorders (principal); Z98.890 Other specified postprocedural states; H91.90 Unspecified hearing loss, unspecified ear; Z88.2 Allergy status to sulfonamides; Z88.5 Allergy status to narcotic agent
CPT/HCPCS: 82565; 84520; 70481; 36415; Q9967

== ENCOUNTER → 2020-05-27 | Outpatient (CLI) | payer MEDICARE ==
[2020-05-27 11:24] LABS: HCT 42.5 % (34.0-46.0); HGB 13.7 gm/dL (11.4-16.0); MCH 30.1 pg (25.0-35.0); MCHC 32.4 g/dL (31.0-37.0); MCV 92.9 fL (80.0-100.0); Platelet Count 177 k/uL (150-450); RBC 4.57 m/uL (3.80-5.40); RDW 13.8 % (11.5-15.5); WBC 6.1 k/uL (3.8-10.6)
[2020-05-27 11:32] LABS: African American GFR (CKD) >90 (>60 ml/min/1.73 sqM); Anion Gap 4 mmol/L; Blood Urea Nitrogen 14 mg/dL (7-17); Carbon Dioxide 30 mmol/L (22-30); Chloride 105 mmol/L (98-107); Non-African American GFR(CKD) 83 (>60 ml/min/1.73 sqM); Potassium 4.2 mmol/L (3.5-5.1); Sodium 139 mmol/L (137-145)
== END | disposition home or self-care (01) ==
LOC: LABPAT 10:24
PROVIDERS: ATTEND Internal Medicine Interventional Cardiology
DX: Z01.818 Encounter for other preprocedural examination (principal)
CPT/HCPCS: 36415; 80051; 82565; 84520; 85027

== ENCOUNTER 2020-06-03 06:30 | Day surgery (SDC) | payer MEDICARE ==
[2020-06-01 13:44] VITALS: BMI 32.1
[~2020-06-03 06:30] MED LIST changes: +ALPRAZolam 0.25 MG TAB PO PRN; +ALPRAZolam 0.5 MG TAB PO PRN; -DEXAMETHASONE SOD PHOSPHATE 10 MG/ML 1 ML VIAL IV ONE; -LACTATED RINGERS 1,000 ML IV SCH; +NITROGLYCERIN SL TABS 0.4 MG TAB SUBLINGUAL PRN; -ONDANSETRON 4 MG/2 ML VIAL IVP ONE; +SODIUM CHLORIDE 0.9% 1,000 ML in EMPTY BAG 1 BAG IV ONE; -ceFAZolin 2 GM in SODIUM CHLORIDE 0.9% 100 ML IVPB ONE
[2020-06-03] MEDS ORDERED: ASPIRIN 325 MG TAB PO ONE (07:00)
[2020-06-03] MEDS ORDERED: ATORVASTATIN 80 MG TAB PO ONE (07:00)
[2020-06-03 07:12] LABS: Glucose,Whole Blood 129 mg/dL (75-99)
[2020-06-03 07:17] VITALS: RESP 18
[2020-06-03 07:24] LABS: INR 1.5 (<1.2); Prothrombin Time 14.5 sec (9.0-12.0)
[2020-06-03] MEDS ORDERED: LIDOCAINE 1% INJ 10MG/ML (20 ML MDV) ONE (07:31)
[2020-06-03] MEDS ORDERED: VERAPAMIL 2.5 MG/ML 2 ML AMP ONE (07:31)
[2020-06-03] MEDS ORDERED: HEPARIN SODIUM 1,000 UN/ML (10ML VL) ONE (07:31)
[2020-06-03] MEDS ORDERED: MIDAZOLAM 2 MG/2 ML VIAL IVP ONE (07:59)
[2020-06-03] MEDS ORDERED: LIDOCAINE 1% INJ 10MG/ML (20 ML MDV) SQ ONE (07:59)
[2020-06-03] MEDS ORDERED: HEPARIN SODIUM 1,000 UN/ML (10ML VL) IV ONE (08:03)
[2020-06-03] MEDS ORDERED: VERAPAMIL SYRINGE (5 MG/10 ML) INTRAARTER ONE (08:03)
[2020-06-03] MEDS ORDERED: IOPAMIDOL-370 100ML BTL INJ ONE (08:10)
[2020-06-03] MEDS ORDERED: SODIUM CHLORIDE 0.9% 1,000 ML IV SCH (08:30)
--- NOTE | 2020-06-03 10:02 | CC ---
CARDIAC CATHETERIZATION REPORT DATE OF SERVICE: 06/03/2020 PROCEDURE: Left heart catheterization and coronary angiography. PERFORMED BY: Dr. Maverick Enriquez. Moderate conscious sedation time was 12 minutes. Patient was administered Versed. Oxygen saturation, hemodynamics and EKG were monitored closely. CLINICAL INFORMATION: Ms. Shelby Srivastava is a 79-year-old lady with a history of paroxysmal atrial fibrillation, hypertension, type 2 diabetes with sick sinus syndrome and underlying dual-chamber pacemaker. Because of recurrent chest discomfort suggestive of angina, responded to nitroglycerin. She was advised cardiac catheterization after due discussion regarding risks, benefits, and options. PROCEDURE NOTE: Under local anesthesia and strict aseptic precautions, a 6-Kyrgyz introducer was placed in the right radial artery. Using a JL3.5 and JR4.0 catheters, I performed coronary angiography and the same right catheter was used to check LV pressure but LV gram was not performed. The sheath was taken out and TR band applied as per protocol with saturation of the fingers of the right hand of about 99%. Patient tolerated the procedure well without complications. CARDIAC CATHETERIZATION FINDINGS: Left ventricular end-diastolic pressure was about 10 mmHg without any gradient across the aortic valve. CORONARY ANGIOGRAPHY FINDINGS: RIGHT CORONARY ARTERY: Dominant vessel, no significant disease, distally bifurcates into PDA and PLV, both of which have minor irregularities. No significant disease in the dominant RCA. LEFT MAIN CORONARY ARTERY: Long vessel, free of significant disease. Bifurcates into LAD and circumflex. No significant disease in the left main. LEFT ANTERIOR DESCENDING CORONARY ARTERY: Good caliber vessel, extends along the antral wall, quite tortuous. The distal 1/3 of the vessel has mild diffuse disease but no significant obstructive narrowing, distally it curves over the apex to supply the inferoapical portion of left ventricle. LAD is a long vessel. The distal 1/3 is diffusely disease, but no significant disease, minor irregularities, gives off septal and diagonal branches. LEFT POSTERIOR CIRCUMFLEX CORONARY ARTERY: Nondominant vessel. Good caliber, good distribution and distally, has fair caliber, gives off a posterolateral branch, has minor irregularities. No significant disease in the nondominant circumflex. FINAL IMPRESSION: This patient has normal filling pressures. No gradient across the aortic valve. A right-dominant system. Diffuse disease in the distal 1/3 of LAD but no significant obstructive disease. RECOMMENDATIONS: Continued medical therapy with risk factor modification is advised. No intervention necessary. Findings were discussed with the patient as well as her son and I expect she will be discharged later on today if she remains stable. MMTERESAL / JANINEN: [id number] /
[2020-06-03 14:07] VITALS: BP 109/59; PULSE 62
== END 2020-06-03 14:05 | disposition home or self-care (01) ==
LOC: CATHCVL 06:30
PROVIDERS: ATTEND Internal Medicine Interventional Cardiology
DX: I25.110 Atherosclerotic heart disease of native coronary artery with unstable angina pectoris (principal); I77.1 Stricture of artery; R07.89 Other chest pain; R06.02 Shortness of breath; I49.5 Sick sinus syndrome; I48.0 Paroxysmal atrial fibrillation; E11.8 Type 2 diabetes mellitus with unspecified complications; E78.00 Pure hypercholesterolemia, unspecified; I10 Essential (primary) hypertension; Z95.0 Presence of cardiac pacemaker; Z72.0 Tobacco use; Z79.84 Long term (current) use of oral hypoglycemic drugs; Z79.899 Other long term (current) drug therapy; Z79.01 Long term (current) use of anticoagulants; Z88.5 Allergy status to narcotic agent; Z82.49 Family history of ischemic heart disease and other diseases of the circulatory system
CPT/HCPCS: 93458; 84443; 84450; 84460; 85610; C1769; C1894; J2250; J2001; J1644; Q9967

== ENCOUNTER 2022-11-26 09:41 | Emergency (ER) | payer MEDICARE ==
[2022-11-26 09:55] VITALS: BP 140/72; RESP 18; TEMP 98
--- NOTE | 2022-11-26 10:17 | ED ---
General Adult HPI - General Chief complaint: Fall Stated complaint: fell facial injuries Time Seen by Provider: 11/26/22 09:58 Source: patient Mode of arrival: ambulatory Limitations: no limitations - History of Present Illness Initial comments: Dictation was produced using [employer] (formerly [employer]) dictation software. please excuse any grammatical, word or spelling errors. Chief Complaint: 82-year-old female presents emergency department after fall History of Present Illness: Patient is a 82-year-old female she takes Coumadin. She tripped while walking to her mailbox yesterday at 12 AM. States she fell forward in her face. She fell on outstretched hands. She complains of bilateral wrist pain, facial pain and bilateral anterior knee pain. The ROS documented in this emergency department record has been reviewed and confirmed by me. Those systems with pertinent positive or negative responses have been documented in the HPI. All other systems are other negative and/or noncontributory. - Related Data Home Medications Medication Instructions Recorded Confirmed Atorvastatin [Lipitor] 10 mg PO HS 08/26/16 12/16/21 Calcium Carbonate/Vitamin D3 1 tab PO DAILY 08/26/16 12/16/21 [Calcium 500-Vit D3 600 Tablet] Fish Oil/Dha/Epa [Fish Oil 1,200 1 cap PO TID 08/26/16 12/16/21 mg Fish Oil] Multivitamins, Thera [Multivitamin] 1 tab PO DAILY 08/26/16 12/16/21 metFORMIN HCL [Glucophage] 500 mg PO BID 08/26/16 12/16/21 Cyanocobalamin (Vitamin B-12) 1,000 mcg PO DAILY 01/30/20 12/16/21 [Vitamin B-12] Folic Acid 0.4 mg PO BID 01/30/20 12/16/21 Warfarin [Coumadin] 5 mg PO SUMOWEFRSA 01/30/20 12/16/21 Metoprolol Tartrate [Lopressor] 50 mg PO BID 06/01/20 12/16/21 Ascorbic Acid [Vitamin C] 500 mg PO DAILY 12/16/21 12/16/21 Cholecalciferol [Vitamin D3 (25 25 mcg PO DAILY 12/16/21 12/16/21 Mcg = 1000 Iu)] Warfarin [Coumadin] 2.5 mg PO TUTH 12/16/21 12/16/21 Zinc 50 mg PO DAILY 12/16/21 12/16/21 Allergies Allergy/AdvReac Type Severity Reaction Status Date / Time regadenoson [From Lexiscan] Allergy Severe Anaphylaxis Verified 11/26/22 09:54 codeine Allergy Unknown Verified 11/26/22 09:54 meperidine [From Demerol] Allergy Unknown Verified 11/26/22 09:54 Review of Systems ROS Statement: Those systems with pertinent positive or pertinent negative responses have been documented in the HPI. ROS Other: All systems not noted in ROS Statement are negative. Past Medical History Past Medical History: Chest Pain / Angina, Diabetes Mellitus, Hyperlipidemia, Osteoarthritis (OA) Additional Past Medical History / Comment(s): IBS, hx lung collapsing X1 1999. 2 falls in last month, broke left foot January 04, has boot on. History of Any Multi-Drug Resistant Organisms: None Reported Past Surgical History: Appendectomy, Cholecystectomy, Heart Catheterization, Orthopedic Surgery, Pacemaker, Tonsillectomy, Tubal Ligation Additional Past Surgical History / Comment(s): Bilateral cataracts, Lt ankle-screws, Lt rotator cuff repair, Collapsed lung, Acoustic neuroma, Heart cath x2, colonoscopy. Past Anesthesia/Blood Transfusion Reactions: No Reported Reaction Type of Cardiac Device: Permanent Pacemaker Device Placement Date:: 02/03/2020 Past Psychological History: No Psychological Hx Reported Smoking Status: Never smoker Past Alcohol Use History: Occasional Past Drug Use History: None Reported - Past Family History Mother Family Medical History: No Reported History General Exam - General Exam Comments Initial Comments: PHYSICAL EXAM: General Impression: Alert and oriented x3, not in acute distress HEENT: Abrasion to forehead, bruising around the periorbital areas, no sparing of the tarsal plate, extra-ocular movements intact, pupils equal and reactive to light bilaterally, mucous membranes moist, no hemotympanum Cardiovascular: Heart regular rate and rhythm Chest: Able to complete full sentences, no retractions, no tachypnea Abdomen: abdomen soft, non-tender, non-distended, no organomegaly Musculoskeletal: Pulses present and equal in all extremities, no peripheral edema, bilateral hips and knees are ranged with no issues. She does have some very mild ecchymosis to the bilateral anterior knees. Patient has bruising to the bilateral wrists Motor: no focal deficits noted Neurological: CN II-XII grossly intact, no focal motor or sensory deficits noted Skin: Intact with no visualized rashes Psych: Normal affect and mood Limitations: no limitations Course Vital Signs 11/26/22 09:51 Temperature 98 F Pulse Rate 52 L Respiratory 18 Rate Blood Pressure 140/72 O2 Sat by Pulse 94 L Oximetry Medical Decision Making - Medical Decision Making Was pt. sent in by a medical professional or institution (HARMAN Devlin, SECRETARY OF POLICE, urgent care, hospital, or fpc...) When possible be specific @ -No Did you speak to anyone other than the patient for history (EMS, parent, family, police, friend...)? What history was obtained from this source @ -Son at the bedside Did you review nursing and triage notes (agree or disagree)? Why? @ -I reviewed and agree with nursing and triage notes Were old charts reviewed (outside hosp., previous admission, EMS record, old EKG, old radiological studies, urgent care reports/EKG's, fpc records)? Report findings @ -No old charts were reviewed Differential Diagnosis (chest pain, altered mental status, abdominal pain women, abdominal pain men, vaginal bleeding, musculoskeletal, weakness, fever, dyspnea, syncope, headache, dizziness, GI bleed, back pain, seizure, CVA, palpatations, mental health)? @ -Intracranial injury, intracranial hemorrhage, cervical spine fracture, scaphoid injury EKG interpreted by me (3pts min.). @ -None done X-rays interpreted by me (1pt min.). @ -Bilateral wrist x-rays are negative CT interpreted by me (1pt min.). @ -Scan the head and C-spine shows no acute processes U/S interpreted by me (1pt. min.). @ -None done What testing was considered but not performed or refused? (CT, X-rays, U/S, la bs)? Why? @ -None What meds were considered but not given or refused? Why? @ -None Did you discuss the management of the patient with other professionals (professionals i.e. HARMAN Devlin, SECRETARY OF POLICE, lab, RT, psych nurse, executive secretary social welfare, felt hat pouncing operator hand, teacher, code enforcement officer, director of casework department)? Give summary @ -No Was smoking cessation discussed for >3mins.? @ -No Was critical care preformed (if so, how long)? @ -No Were there social determinants of health that impacted care today? How? (Homelessness, low income, unemployed, alcoholism, drug addiction, transportation, low edu. Level, literacy, decrease access to med. care, fci, rehab)? @ -No Was there de-escalation of care discussed even if they declined (Discuss DNR or withdrawal of care, Hospice)? DNR status @ -No What co-morbidities impacted this encounter? (DM, HTN, Smoking, COPD, CAD, Cancer, CVA, ARF, Chemo, Hep., AIDS, mental health diagnosis, sleep apnea, morbid obesity)? @ -History Of anticoagulation use Was patient admitted / discharged? Hospital course, mention meds given and route, prescriptions, significant lab abnormalities, going to OR and other pertinent info. @ -[id number] female presents emergency department after fall. She fell down around 12 hours ago. Computed tomography scan agrees unremarkable. Bilateral hand x-rays are negative. Patient does not have any scaphoid tenderness. No pain along the scaphoid tubercle, anatomic snuffbox or pain at the base of the thumb with axial loading. Patient's INR is 1.9. Rest of labs unremarkable. Patient will be discharged. Undiagnosed new problem with uncertain prognosis? @ -No Drug Therapy requiring intensive monitoring for toxicity (Heparin, Nitro, Insulin, Cardizem)? @ -No Were any procedures done? @ -No Diagnosis/symptom? Acute, or Chronic, or Acute on Chronic? Uncomplicated (without systemic symptoms) or Complicated (systemic symptoms)? @ -1. Head contusion Side effects of treatment? @ -No Exacerbation, Progression, or Severe Exacerbation? @ -No Poses a threat to life or bodily function? How? (Chest pain, [place], [place], pneumonia, PE, COPD, DKA, ARF, appy, cholecystitis, CVA, Diverticulitis, Homicidal, Suicidal, threat to staff... and all critical care pts) @ -yes - Lab Data Result diagrams: 11/26/22 11:06 11/26/22 11:06 Lab Results 11/26/22 11/26/22 11/26/22 Range/Units 11:06 11:06 11:06 WBC 6.0 (3.8-10.6) k/uL RBC 4.52 (3.80-5.40) m/uL Hgb 13.9 (11.4-16.0) gm/dL Hct 41.2 (34.0-46.0) % MCV 91.3 (80.0-100.0) fL MCH 30.7 (25.0-35.0) pg MCHC 33.7 (31.0-37.0) g/dL RDW 13.8 (11.5-15.5) % Plt Count 151 (150-450) k/uL MPV 7.8 Neutrophils % 61 % Lymphocytes % 22 % Monocytes % 7 % Eosinophils % 6 % Basophils % 1 % Neutrophils # 3.7 (1.3-7.7) k/uL Lymphocytes # 1.3 (1.0-4.8) k/uL Monocytes # 0.4 (0-1.0) k/uL Eosinophils # 0.3 (0-0.7) k/uL Basophils # 0.1 (0-0.2) k/uL PT 18.9 H (9.0-12.0) sec INR 1.9 H (<1.2) APTT 29.6 (22.0-30.0) sec Sodium 138 (137-145) mmol/L Potassium 4.0 (3.5-5.1) mmol/L Chloride 106 (98-107) mmol/L Carbon Dioxide 25 (22-30) mmol/L Anion Gap 7 mmol/L BUN 12 (7-17) mg/dL Creatinine 0.79 (0.52-1.04) mg/dL Est GFR (CKD-EPI)AfAm 83 (>60 ml/min/1.73 sqM) Est GFR (CKD-EPI)NonAf 72 (>60 ml/min/1.73 sqM) Glucose 120 H (74-99) mg/dL Calcium 8.9 (8.4-10.2) mg/dL Disposition Clinical Impression: Head contusion, Wrist sprain Disposition: HOME SELF-CARE Condition: Good Instructions (If sedation given, give patient instructions): Fall Prevention for Older Adults (ED) Is patient prescribed a controlled substance at d/c from ED?: No Referrals: Elvis Galvan DO [Primary Care Provider] - 1-2 days Time of Disposition: 12:45
--- NOTE | 2022-11-26 10:58 | CT ---
EXAMINATION TYPE: CT brain fred mccray con DATE OF EXAM: 11/26/2022 COMPARISON: None HISTORY: FALL CT DLP: 1305.[address] of the brain was performed. The ventricles, basal cisterns and sulci overlying the cerebral convexities demonstrate mild enlargem ent. There is no evidence for intracranial hemorrhage or sulcal effacement. There is decreased attenuatio n about the periventricular white matter and deep white matter of both cerebral hemispheres, compatib le with chronic small vessel ischemia. No mass effects are seen. If symptoms persist consider MRI. Frontal scalp hematoma. Right-sided mastoidectomy changes noted. Right maxillary mucous retention cys t. IMPRESSION: 1. Age related atrophic and chronic small vessel ischemic change without acute intracranial process seen at this time. CT Cervical Spine: Unenhanced CT of the cervical spine was performed with bone and soft tissue window settings submitted . Coronal and sagittal reconstruction is obtained. There is normal alignment and prevertebral soft tissues. No evidence for acute cervical fracture . Re versal of the normal cervical lordosis which can be seen in patients with muscle spasticity. Scattere d degenerative disc disease and spondylosis. Biapical scarring. IMPRESSION: 1. No evidence for acute fracture or subluxation of the cervical spine.
--- NOTE | 2022-11-26 11:02 | XR ---
EXAMINATION TYPE: XR wrist complete BILATERAL DATE OF EXAM: 11/26/2022 CLINICAL HISTORY: pain TECHNIQUE: Frontal, lateral and oblique images of the bilateral wrists are obtained. COMPARISON: None. FINDINGS: There is no acute fracture/dislocation evident. The joint spaces appear within normal limits. The o verlying soft tissue appears unremarkable. IMPRESSION: There is no acute fracture or dislocation seen. ICD 10 NO FRACTURE, INITIAL EVALUATION
[2022-11-26 11:32] LABS: Basophils # (A) 0.1 k/uL (0-0.2); Basophils % (A) 1 %; Eosinophils # (A) 0.3 k/uL (0-0.7); Eosinophils % (A) 6 %; HCT 41.2 % (34.0-46.0); HGB 13.9 gm/dL (11.4-16.0); Lymphocytes # (A) 1.3 k/uL (1.0-4.8); Lymphocytes % (A) 22 %; MCH 30.7 pg (25.0-35.0); MCHC 33.7 g/dL (31.0-37.0); MCV 91.3 fL (80.0-100.0); Mean Platelet Volume 7.8; Monocytes # (A) 0.4 k/uL (0-1.0); Monocytes % (A) 7 %; Neutrophils # (A) 3.7 k/uL (1.3-7.7); Neutrophils % (A) 61 %; Platelet Count 151 k/uL (150-450); RBC 4.52 m/uL (3.80-5.40); RDW 13.8 % (11.5-15.5)
[2022-11-26 11:43] LABS: Calcium 8.9 mg/dL (8.4-10.2)
[2022-11-26 12:45] LABS: INR 1.9 (<1.2); Partial Thromboplastin Time 29.6 sec (22.0-30.0); Prothrombin Time 18.9 sec (9.0-12.0)
[2022-11-26 13:27] VITALS: PULSE 62
== END 2022-11-26 13:26 | disposition home or self-care (01) ==
LOC: EC 09:41
DX: S00.93XA Contusion of unspecified part of head, initial encounter (principal); S63.502A Unspecified sprain of left wrist, initial encounter; S63.501A Unspecified sprain of right wrist, initial encounter; E78.5 Hyperlipidemia, unspecified; M19.90 Unspecified osteoarthritis, unspecified site; E11.9 Type 2 diabetes mellitus without complications; Z79.01 Long term (current) use of anticoagulants; Z79.84 Long term (current) use of oral hypoglycemic drugs; Z79.899 Other long term (current) drug therapy; Z88.5 Allergy status to narcotic agent; Z88.8 Allergy status to other drugs, medicaments and biological substances; Z90.49 Acquired absence of other specified parts of digestive tract; Z86.018 Personal history of other benign neoplasm; W01.0XXA Fall on same level from slipping, tripping and stumbling without subsequent striking against object, initial encounter; Y93.01 Activity, walking, marching and hiking
CPT/HCPCS: 36415; 70450; 72125; 80048; 85025; 85610; 85730; 93005; 99284

== ENCOUNTER → 2023-01-16 | Outpatient (CLI) | payer MEDICARE ==
[2023-01-16 22:48] LABS: ALT 24 U/L (8-44); AST 33 U/L (13-35); Albumin/Globulin Ratio 2.11 Ratio (1.60-3.17); Alkaline Phosphatase 77 U/L (41-126); BUN/Creat Ratio 18.62 Ratio (12.00-20.00); Blood Urea Nitrogen 14.9 mg/dL (9.0-27.0); Calcium 9.4 mg/dL (8.7-10.3); Carbon Dioxide 26.2 mmol/L (21.6-31.8); Chloride 104 mmol/L (96-109); Globulin 1.9 d/dL (1.6-3.3); Glucose 87 mg/dL (70-110); Potassium 4.5 mmol/L (3.5-5.5); Sodium 141 mmol/L (135-145); Total Bilirubin 0.4 mg/dL (0.3-1.2); Total Protein 5.9 d/dL (6.2-8.2)
== END | disposition home or self-care (01) ==
LOC: LABWHC1 12:02
PROVIDERS: ATTEND Nurse Practitioner
DX: I48.91 Unspecified atrial fibrillation (principal)
CPT/HCPCS: 36415; 80053; 84443

== ENCOUNTER → 2025-01-17 | Outpatient (CLI) | payer MEDICARE ==
--- NOTE | 2025-01-17 17:06 | XR ---
EXAMINATION TYPE: XR Hip Bilateral Complete DATE OF EXAM: 01/17/2025 12:49 PM COMPARISON: None. CLINICAL INDICATION: Female, 84 years old with history of M25.552 Left hip pain trauma injury, pain TECHNIQUE: 2 view(s) obtained. FINDINGS: Bilateral hips are examined in 2 projections each. Joint spaces have mild narrowing compatible some m ild degenerative change. No acute fracture or dislocation evident. Sacroiliac joint degenerative lama ges are noted. All exams can be performed as clinically indicated. IMPRESSION: 1. No acute osseous abnormality bilateral hips. 2. Mild degenerative changes. [facility], , 01/17/2025 5:04 PM
== END | disposition home or self-care (01) ==
LOC: RADXRMAIN 12:16
PROVIDERS: ATTEND Family Medicine
DX: M16.0 Bilateral primary osteoarthritis of hip (principal)
CPT/HCPCS: 73521